=== PATIENT | male | born 1950 | race Caucasian/White ===

== ENCOUNTER 2016-10-03 08:47 | Day surgery (SDC) | payer MEDICARE, BC ==
[~2016-10-03 08:47] MED LIST: Buffered Lidocaine 1% SYR 3ML* 3 ML/SYR SYRINGE INTRADERM ONE
[2016-10-03] MEDS ORDERED: fentaNYL* 50 MCG/ML 2 ML VIAL (100 MCG VIAL) ONE (09:43)
[2016-10-03] MEDS ORDERED: Midazolam* 1 MG/ML 2 ML VIAL (2 MG) ONE (09:43)
[2016-10-03] MEDS ORDERED: Tropicamide 1% OPTH.SOL* BTL ONE (10:11)
[2016-10-03] MEDS ORDERED: Flurbiprofen 0.03% OPTH.SOL* 2.5 ML BTL ONE (10:11)
[2016-10-03] MEDS ORDERED: Tetracaine 0.5% OPTH.SOL 4 ML* 1 DROP BTL ONE (10:11)
[2016-10-03] MEDS ORDERED: Phenylephrine 2.5% OPTH.SOL* 2 ML BTL ONE (10:11)
[2016-10-03] MEDS ORDERED: Cyclopentolate 1% OPTH.SOL* 2 ML BTL ONE (10:11)
[2016-10-03] MEDS ORDERED: Neomycin/Polymy/Dex OPHTH.OIN* 3.5 GM ONE (10:11)
[2016-10-03] MEDS ORDERED: Lidocaine 1% MPF* 2 ML VIAL ONE (10:11)
[2016-10-03 10:44] VITALS: BP 120/65
--- NOTE | 2016-10-04 01:18 | OP ---
DATE OF OPERATION: 10/03/16 [facility] DATE OF : 48 SURGEON: Dr. Tk Ferrer. MILIEU COORDINATOR: None. ANESTHESIOLOGIST: Luis Thurman DO ANESTHESIA: Topical with intravenous sedation. PRE-OP DIAGNOSIS: Cataract, right eye. POST-OP DIAGNOSIS: Cataract, right eye. OPERATIVE PROCEDURE: Phacoemulsification and cataract extraction with posterior chamber intraocular lens implant, right eye. COMPLICATIONS: None. BLOOD LOSS: None. DESCRIPTION OF PROCEDURE: The patient was brought to the operating room and received a small amount of intra-venous sedation. A drop of Tetracaine was placed in his right eye. He was prepped and draped in the usual sterile fashion for ophthalmic surgery and attention was directed to the right eye where a speculum was placed. A paracentesis was created at the 11 o'clock position and 0.1 cc of 1 percent preservative-free Lidocaine was injected into the anterior chamber followed by DisCoVisc. The eye was digitally stabilized while a 2.75 mm keratome was used to create a triplanar clear corneal incision at the 9 o'clock position. A continuous curvilinear capsulorrhexis was created with a cystotome and Utrata forceps. BSS on a cannula was used to hydrodissect the lens from the capsule. Phacoemulsification was performed in a divide-and- conquer technique to create four fragments which were removed. Residual cortical material was removed with irrigation and aspiration. DisCoVisc was used to inflate the capsular bag and an SN60AT 21.0 diopter lens was folded and inserted into the capsular bag. DisCoVisc was removed using irrigation and aspiration. BSS on a cannula was used to hydrate the corneal stroma and seal the wound. At the end of the case the pupil was round and the lens was centered. The eye was of normal pressure and the wound was water tight. The speculum was removed and topical Maxitrol ointment was placed on the surface of the eye. The eye was closed, patched and shielded and the patient was sent to the recovery room in stable condition with post operative instructions and follow-up appointment given. [id number]/[facility] #: [id number] MTDD
== END 2016-10-03 10:34 | disposition home or self-care (01) ==
LOC: OREAST 08:47
PROVIDERS: ATTEND Ophthalmology
DX: H25.11 Age-related nuclear cataract, right eye (principal); Z87.891 Personal history of nicotine dependence; E78.5 Hyperlipidemia, unspecified
CPT/HCPCS: A9270-GY; J2250; J3010; V2632

== ENCOUNTER 2019-05-13 12:49 | Emergency (ER) | payer MEDICARE, BC ==
--- OUTSIDE RECORDS SUMMARY | 2019-05-13 12:55 | XMS REPORT | Continuity of Care Document ---
:1950 External Reference #:[id number] Author Name José Miguel Bansal, OD Address [address] [place] [address] Care Team Providers Name Role Phone Tim Jamison MD - Camp Counselor Care Team Information Sales Representative Groceries Problems Active Problems Provider Date Retinal defect José Miguel Kwan O.D. Onset: 10/22/2014 Lens Replaced By Other Means José Miguel Kwan O.D. Onset: 10/22/2014 Vitreous degeneration José Miguel Kwan O.D. Onset: 10/22/2014 Nuclear senile cataract José Miguel Kwan O.D. Onset: 10/22/2014 Status Post Surgery José Miguel Kwan O.D. 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 Onset: 10/21/2013 After-cataract with vision obscured Tk Ferrer M.D. Onset: 10/21/2013 Social History Type Date Description Comments Sex Unknown ETOH Use Rarely consumes alcohol Tobacco Use Start: Unknown Patient has never smoked Smoking Status Reviewed: 04/08/19 Patient has never smoked Allergies, Adverse Reactions, Alerts Description No Known Drug Allergies Medications Active Medications SIG Qnty Indications Ordering Provider Date Brimonidine Tartrate instill 1 drop 15units José Miguel Bansal, OD 01/07/2019 three times per 0.15% Solution day right eye only Refresh Optive 1 drops both 2ml Tk Ferrer, 10/21/2013 0.5-0.9% eyes twice a day M.DLuzma Solution History Medications Alphagan P 1 drop twice a 10ml José Miguel Bansal, OD 11/26/2018 - 0.1% day right eye 01/07/2019 Solution Immunizations Description No Information Available Vital Signs Date Vital Result Comment 04/04/2019 3:34pm Intraocular Pressure Right Eye 14 mmHg 330pm Intraocular Pressure Left Eye 20 mmHg 04/04/2019 3:34pm Intraocular Pressure Right Eye 34 mmHg after 1 drop lumigan and combigan ~930am Results Description No Information Available Procedures Date Code Description Status 04/04/2019 65389 Gonioscopy Completed 04/04/2019 86273 Eye Exam Est Intermediate Completed 03/12/2019 39611 Visual Field Exam Extended, Unilateral Or Bilateral Completed 11/26/2018 25346 Oct Retina Completed 11/26/2018 76775 Eye Exam Est Intermediate Completed Medical Devices Description No Information Available Encounters Type Date Location Provider Dx Diagnosis Office Visit 03/12/2019 Main Office José Miguel Bansal, OD 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, right eye Office Visit 01/07/2019 Main Office José Miguel Bansal, OD H40.051 Ocular 9:45a hypertension, right eye Assessments Date Code Description Provider 04/08/2019 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, right eye José Miguel Bansal, OD 04/04/2019 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, right eye José Miguel Bansal, OD 04/04/2019 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, right eye José Miguel Bansal, OD 04/04/2019 H43.811 Vitreous degeneration, right eye José Miguel Bansal, OD 04/04/2019 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, bilateral José Miguel Bansal, OD 04/04/2019 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, bilateral José Miguel Bansal, OD 04/04/2019 H43.811 Vitreous degeneration, right eye José Miguel Bansal, OD 03/12/2019 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, right eye José Miguel Bansal, OD 01/07/2019 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, right eye José Miguel Bansal, OD 11/26/2018 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
--- OUTSIDE RECORDS SUMMARY | 2019-05-13 12:55 | XMS REPORT | Continuity of Care Document ---
:1950 External Reference #:[id number] Author Name José Miguel Bansal, OD (transmitted by agent of provider Ulises Coelho) Address [address] [place] [address] Care Team Providers Name Role Phone Tim Jamison MD - Computer Technical Support Specialist Care Team Information Lathe Tender Problems Active Problems Provider Date Retinal defect [...] Patient has never smoked Smoking Status Reviewed: 04/15/19 Patient has never smoked Allergies, Adverse Reactions, Alerts Description No Known Drug Allergies Medications Active Medications SIG Qnty Indications Ordering Provider Date Latanoprost 1 drop nightly 2.500ml José Miguel Bansal, SALOMÓN 04/15/2019 0.005% right eye Solution Combigan one drop twice a 15ml José Miguel Bansal, SALOMÓN 04/15/2019 0.2-0.5% day right eye Solution Refresh Optive 1 drops both 2ml Tk Ferrer, 10/21/2013 0.5-0.9% eyes twice a day M.DLuzma Solution History Medications Brimonidine Tartrate instill 1 drop 15units José Miguel Bansal OD 01/07/2019 - three times per 04/15/2019 0.15% Solution day right eye only Alphagan P 1 drop twice a 10ml José Miguel Bansal, OD 11/26/2018 - 0.1% day right eye 01/07/2019 Solution Immunizations Description No Information Available Vital Signs Date Vital Result Comment 04/08/2019 3:26pm Intraocular Pressure Right Eye 12 mmHg Intraocular Pressure Left Eye 18 mmHg 04/04/2019 3:34pm Intraocular Pressure Right Eye 14 mmHg 330pm Intraocular Pressure Left Eye 20 mmHg Results Description No Information Available Procedures Date Code Description Status 04/04/2019 21317 Gonioscopy Completed 04/04/2019 37555 Eye Exam Est Intermediate Completed 03/12/2019 16412 Visual Field Exam Extended, Unilateral Or Bilateral Completed 11/26/2018 29534 Oct Retina Completed 11/26/2018 04464 Eye Exam Est Intermediate Completed Medical Devices Description No Information Available Encounters Type Date Location Provider Dx Diagnosis Office Visit 04/08/2019 Main Office José Miguel Bansal, OD H40.051 Ocular 3:00p hypertension, right eye Office Visit 03/12/2019 Main Office José Miguel Bansal, OD 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
--- OUTSIDE RECORDS SUMMARY | 2019-05-13 12:55 | XMS REPORT | Continuity of Care Document ---
:1950 External Reference #:[id number] Author Name José Miguel Bansal, OD Address [address] [place] [address] Care Team Providers Name Role Phone Tim Jamison MD - Lead C Developer Care Team Information Improvement Spec [phone] Problems Active Problems Provider Date Retinal defect José Miguel Kwan O.D. Onset: 10/22/2014 Lens Replaced By Other Means José Miguel Kwan O.D. Onset: 10/22/2014 Vitreous degeneration José Miguel Kwan O.D. Onset: 10/22/2014 Nuclear senile cataract José Miguel Kwan O.D. Onset: 10/22/2014 Status Post Surgery José Miguel Kwan O.D. 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 Onset: 10/21/2013 After-cataract with vision obscured kT Ferrer M.D. Onset: 10/21/2013 Social History Type Date Description Comments Sex Unknown ETOH Use Rarely consumes alcohol Tobacco Use Start: Unknown Patient has never smoked Smoking Status Reviewed: 05/05/19 Patient has never smoked Allergies, Adverse Reactions, Alerts Description No Known Drug Allergies Medications Active Medications SIG Qnty Indications Ordering Provider Date Latanoprost 1 drop nightly 2.500ml José Miguel Bansal, OD 04/15/2019 0.005% right eye Solution Combigan one drop twice a 15ml José Miguel Bansal, OD 04/15/2019 0.2-0.5% day right eye Solution Refresh Optive 1 drops both 2ml Tk Ferrer, 10/21/2013 0.5-0.9% eyes twice a day M.D. Solution History Medications Brimonidine Tartrate instill 1 drop 15units José Miguel Bansal, OD 01/07/2019 - three times per 04/15/2019 0.15% Solution day right eye only Alphagan P 1 drop twice a 10ml José Miguel Bansal, OD 11/26/2018 - 0.1% day right eye 01/07/2019 Solution Immunizations Description No Information Available Vital Signs Date Vital Result Comment 04/15/2019 12:36pm Intraocular Pressure Right Eye 19 mmHg Intraocular Pressure Left Eye 19 mmHg 04/08/2019 3:26pm Intraocular Pressure Right Eye 12 mmHg Intraocular Pressure Left Eye 18 mmHg Results Description No Information Available Procedures Date Code Description Status 04/04/2019 57405 Gonioscopy Completed 04/04/2019 41298 Eye Exam Est Intermediate Completed 03/12/2019 19325 Visual Field Exam Extended, Unilateral Or Bilateral Completed 11/26/2018 79780 Oct Retina Completed 11/26/201833338 Eye Exam Est Intermediate Completed Medical Devices Description No Information Available Encounters Type Date Location Provider Dx Diagnosis Office Visit 04/15/2019 Main Office José Miguel Bansal, OD H40.051 Ocular 11:30a hypertension, right eye Office Visit 04/08/2019 Main Office Jos éMiguel Bansal, OD H40.051 Ocular 3:00p hypertension, right eye Office Visit 03/12/2019 Main Office José Miguel Bansal, OD 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, right eye Office Visit 01/07/2019 Main Office José Miguel Bansal, OD H40.051 Ocular 9:45a hypertension, right eye Assessments Date Code Description Provider 05/06/2019 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
--- OUTSIDE RECORDS SUMMARY | 2019-05-13 12:55 | XMS REPORT | Continuity of Care Document ---
:1950 External Reference #:[id number] Author Name José Miguel Bansal, OD Address [address] [place] [address] Care Team Providers Name Role Phone Tim Jamison MD - Deputy Fire Marshal Care Team Information Laborer General Problems Active Problems Provider Date Retinal defect [...] Patient has never smoked Smoking Status Reviewed: 04/04/19 Patient has never smoked Allergies, Adverse Reactions, [...] Vital Signs Date Vital Result Comment 04/04/2019 9:15am Intraocular Pressure Right Eye 44 mmHg Cornea Thickness Left Eye 577 m Cornea Thickness Right Eye 522 m Pachymetry adjusted IOP Right Eye -2 Pachymetry adjusted IOP Left Eye +1 03/12/2019 4:06pm Intraocular Pressure Right Eye 23 mmHg Intraocular Pressure Left Eye 18 mmHg Results Description No Information Available Procedures Date Code Description Status 03/12/2019 07784 Visual Field Exam Extended, Unilateral Or Bilateral Completed 11/26/2018 00053 Oct Retina Completed 11/26/2018 71986 Eye Exam Est Intermediate Completed Medical Devices Description No Information Available Encounters Type Date Location Provider Dx Diagnosis Office Visit 03/12/2019 Main Office José Miguel Bansal, OD 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
--- NOTE | 2019-05-13 13:27 | UC ---
Complaint Male HPI - HPI Summary HPI Summary: 69-year-old male with mild burning on urination yesterday and his urine was dark in color. He states that has improved today. He had sudden onset of left- sided flank pain yesterday which continues today. He has mild nausea but no vomiting. He refuses Toradol injection at this point in time. He refuses anti- nausea medication at this point in time. - History of Current Complaint Chief Complaint: UCBackPain Stated Complaint: SIDE PAIN Time Seen by Provider: 05/13/19 13:11 Hx Obtained From: Patient Onset/Duration: Sudden Onset, Other - Started yesterday. Timing: Constant Severity Initially: Mild Severity Currently: Moderate Pain Intensity: 9 Location: Flank - Left flank. Radiates to: radiates around to back. Character: Sharp, Burning Aggravating Factor(s): Nothing Alleviating Factor(s): Nothing Associated Signs And Symptoms: Positive: Hematuria - Patient states his urine was dark yesterday and today but it has improved today., Nausea - Allergies/Home Medications Allergies/Adverse Reactions: Allergies Allergy/AdvReac Type Severity Reaction Status Date / Time No Known Allergies Allergy Verified 05/13/19 12:56 Home Medications: Home Medications Eye Drops For Pressure 1 drop RIGHT EYE DAILY 05/13/19 [History Confirmed ] Eye Drops Pressure 1 drop RIGHT EYE BID 05/13/19 [History Confirmed 05/13/19] PMH/Surg Hx/FS Hx/Imm Hx Previously Healthy: Yes - Surgical History Surgical History: Yes Surgery Procedure, Year, and Place: 1950 TONSILLECTOMY gb removed approx 2 yrs ago [facility]. 1959 HERNIA REPAIR LEFT GROIN. 2009 HERNIA REPAIR RIGHT GROIN. 1995 RIGHT KNEE TORN MENISCUS. 1989 ELBOW BONE SPUR REPAIR. 2007 DETACHED RETINA LEFT EYE. 2009 CATARAC SURGERY LEFT. 2005 VARICOSE VEIN STRIPPING. LAP LEROY 2014 - Family History Known Family History: Positive: Non-Contributory - Social History Lives: With Family Alcohol Use: Rare Substance Use Type: None Smoking Status (MU): Former Smoker Type: Cigarettes Length of Time of Smoking/Using Tobacco: 10 YRS Have You Smoked in the Last Year: No When Did the Patient Quit Smoking/Using Tobacco: 1978 Review of Systems All Other Systems Reviewed And Are Negative: Yes Genitourinary: Positive: Dysuria, Other - No history of kidney stones. Patient states urine was dark in color yesterday but improved. Is Patient Immunocompromised?: No Physical Exam Triage Information Reviewed: Yes Appearance: Well-Nourished, Ill-Appearing - Pale in appearance, Pain Distress - Patient appears mildly uncomfortable and pale however he prefers not to have any pain medicine at this point in time nor any anti-nausea medicine. Vital Signs: Initial Vital Signs Temp 97 F 05/13/19 12:51 Pulse 60 05/13/19 12:51 Resp 18 05/13/19 12:51 BP 147/79 05/13/19 12:51 Pulse Ox 98 05/13/19 12:51 Vital Signs Reviewed: Yes Respiratory: Positive: Lungs clear, Normal breath sounds, No respiratory distress, No accessory muscle use Cardiovascular: Positive: RRR, No Murmur, Pulses Normal, Brisk Capillary Refill Abdomen Description: Positive: Nontender, No Organomegaly, Soft. Negative: CVA Tenderness (R), CVA Tenderness (L) Bowel Sounds: Positive: Present Re-Evaluation - Re-Evaluation First Eval Re-Evaluation Time: 14:00 Change: Worse - Patient requested antinausea medicine, Zofran 4 mg sublingual ordered. He also agreed to Toradol injection 30 mg. Second Eval Change: Worse - Pt dry-heaving. We will give normal saline 1000 ML IV wide open , Toradol 30 mg IV instead of IM and will continue with the Zofran sublingual. Third Eval Change: Improved - Vital signs stable. Patient is pain free and nausea free. Complaint Male Course/Dx - Course Course Of Treatment: CT abdomen/pelvis without contrast:CT of the abdomen and pelvis was performed without oral or IV contrast. Coronal and sagittal reconstructed images were obtained. Lung bases demonstrate bibasilar atelectasis. The heart demonstrates no pericardial effusion. The liver is normal in size. No focal lesions or intrahepatic ductal dilatation is noted. The patient is status post cholecystectomy. Common duct is not dilated. Pancreas demonstrates no mass or pancreatic ductal dilatation. The spleen is normal size. No adrenal lesions are noted. The kidneys demonstrate no hydronephrosis. There is a calculus in the proximal left ureter. This is at the level of L4-L5. Calculus measures approximately 0.5 cm with mild left hydronephrosis. Right kidney is unremarkable. Multiple parapelvic cysts are noted bilaterally. Aorta demonstrates no abnormal aneurysmal dilatation. Atherosclerotic aorta is noted. No dilated small bowel are noted. The prostate is enlarged. Diverticulosis without definite evidence of diverticulitis. No hernias are noted. Bony structures are grossly unremarkable. IMPRESSION: Left hydronephrosis with a calculi measuring 0.5 cm at the L4-L5 level in the left ureter. Bilateral parapelvic cysts are noted. Patient is status post cholecystectomy At approximately 1445 patient was feeling much better with no further nausea or pain. Discharged instructions were given to him and his . He is to follow- up with his urologist later in the week over the next 2 or 3 days. He's to strain all urine. - Differential Dx/Diagnosis Provider Diagnosis: Kidney stone on left side Discharge ED - Sign-Out/Discharge Documenting (check all that apply): Patient Departure All imaging exams completed and their final reports reviewed: Yes - Discharge Plan Condition: Good Disposition: HOME Prescriptions: Ibuprofen TAB* [Motrin TAB* 600 MG] 600 mg PO Q8H PRN #21 tab PRN Reason: Pain - Mild Ondansetron ODT TAB* [Zofran 4 MG Odt TAB*] 4 mg PO Q8H PRN #15 tab.odt PRN Reason: Nausea Oxycodone HCl/Acetaminophen [Percocet 5-325 mg Tablet] 1 each PO Q4HR PRN #10 tablet MDD 8 PRN Reason: Pain - Moderate Tamsulosin CAP* [Flomax CAP*] 0.4 mg PO DAILY 7 Days #7 cap Patient Education Materials: Kidney Stones (ED) Referrals: Tim Jamison MD [Primary Care Provider] - Ulises Prabhakar MD [Medical Doctor] - Additional Instructions: Increase fluids, rest, take the Motrin with food every 8 hours as needed for mild pain, take the Percocet one or 2 tablets every 4-6 hours for more severe pain. Take the Flomax daily. Take the Zofran as needed under your tongue every 8 hours for nausea. Go to the emergency room for further treatment if you develop severe pain which you cannot control. Called the urologist today and make an appointment for later this week. Strain all urine. Go to the emergency room if you develop any fever or chills. - Billing Disposition and Condition Condition: GOOD Disposition: Home
[2019-05-13] MEDS ORDERED: Ketorolac INJ* 30 MG/ML 1 ML VIAL IM ONE (13:57)
[2019-05-13] MEDS ORDERED: Ondansetron ODT TAB* 4 MG SL ONE (13:57)
[2019-05-13] MEDS ORDERED: Ketorolac INJ* 30 MG/ML 1 ML VIAL IV PUSH ONE (14:11)
[2019-05-13] MEDS ORDERED: NS 0.9% 1000 ML** 1,000 ML IV ONE (14:15)
[2019-05-13 14:25] VITALS: BP 163/82
== END 2019-05-13 15:00 | disposition home or self-care (01) ==
LOC: UCEAST 12:49
DX: N13.2 Hydronephrosis with renal and ureteral calculous obstruction (principal); R19.09 Other intra-abdominal and pelvic swelling, mass and lump; Z90.49 Acquired absence of other specified parts of digestive tract; Z87.891 Personal history of nicotine dependence
CPT/HCPCS: 74176; 81003; 87086; 96360; 96374; 99212; A9270-GY; G0463; J1885

== ENCOUNTER 2019-05-23 07:29 | Day surgery (SDC) | payer MEDICARE, BC ==
--- NOTE | 2019-05-22 14:52 | HP ---
CC: Dr. Jamison * ADMITTING HISTORY AND PHYSICAL: DATE OF ADMISSION: 05/23/19 ADMITTING DIAGNOSES: 1. Calculus, left ureter. 2. Left hydronephrosis. PLANNED PROCEDURE: Left ureteroscopy, possible laser and stent insertion. SURGEON: Dr. Prabhakar. HISTORY OF PRESENT ILLNESS: Brat Mariscal is a 69-year-old gentleman who has had episodic left flank pain and nausea for the almost 2 weeks secondary to a calculus which initially was a 5 mm calculus located in the proximal left ureter at the time of his initial CT. He has been managed conservatively and continues to have fairly severe episodes of flank pain and would like to have treatment for the stone and is now being brought in for left ureteroscopy. PAST MEDICAL HISTORY: Significant for ocular hypertension. PAST SURGICAL HISTORY: Significant for bilateral inguinal hernia repair, cholecystectomy, knee surgery, and surgery for retinal detachment. MEDICATIONS ON ADMISSION: 1. Eye drops. 2. Colace p.r.n. 3. Ibuprofen 2 to 3 times a day. 4. Flomax 0.4 mg daily. 5. Oxycodone p.r.n. ALLERGIES: No known drug allergies. FAMILY HISTORY: Negative for stones. SOCIAL HISTORY: Smoking history: He is a former smoker who quit 40 years ago with a 15-pack year smoking history. REVIEW OF SYSTEMS: He is otherwise in excellent health. There is no history of diabetes mellitus or any other major systemic illness. He denies any chest pain or shortness of breath. PHYSICAL EXAMINATION GENERAL: Reveals a pleasant healthy appearing gentleman. VITAL SIGNS: Blood pressure is 120/62, pulse 78 per minute and regular, temperature 97.6, oxygen saturation 96% on room air. LUNGS: Clear bilaterally. CARDIOVASCULAR EXAM: Regular rate and rhythm. S1, S2. ABDOMEN: Soft with left flank tenderness. IMPRESSION: A 69-year-old gentleman with intermittent left flank pain and nausea secondary to approximately 5 mm calculus in the left ureter. Planned procedure is left ureteroscopy, possible laser and stent insertion. [id number]/[facility] #: [id number] MTDD
[~2019-05-23 07:29] MED LIST changes: -Buffered Lidocaine 1% SYR 3ML* 3 ML/SYR SYRINGE INTRADERM ONE; +Buffered Lidocaine 1% SYRIN* 1 ML/SYRINGE INTRADERM ONE; +Lactated Ringers 1000 ML Bag* 1,000 ML IV SCH; +Sodium Citrate/Citric Acid* 15 ML UDC PO ONE
[2019-05-23] MEDS ORDERED: Sodium Citrate/Citric Acid* 15 ML UDC ONE (09:12)
[2019-05-23] MEDS ORDERED: cefTRIAXone(*) 2 GM ADDV.VIAL IVPB ONE (09:13)
[2019-05-23] MEDS ORDERED: Iohexol 180 (CONTRAST) 10 ML SDV IV ONE (10:04)
[2019-05-23] MEDS ORDERED: Naloxone* 0.4 MG/ML 1 ML VIAL IV PRN (10:15)
[2019-05-23] MEDS ORDERED: fentaNYL* 50 MCG/ML 2 ML VIAL (100 MCG VIAL) IV PRN (10:15)
[2019-05-23] MEDS ORDERED: Ondansetron INJ* 2 MG/ML VIAL IV PRN (10:15)
[2019-05-23] MEDS ORDERED: Lidocaine 2% PF * 5 ML VIAL ONE (10:31)
[2019-05-23] MEDS ORDERED: Propofol* 10 MG/ML 20 ML BTL ONE (10:31)
[2019-05-23] MEDS ORDERED: fentaNYL* 50 MCG/ML 2 ML VIAL (100 MCG VIAL) ONE (10:33)
[2019-05-23] MEDS ORDERED: Furosemide IV* 10 MG/ML 2 ML VIAL (20 MG) ONE (10:54)
[2019-05-23] MEDS ORDERED: Acetaminophen TAB* 325 MG ONE (11:48)
[2019-05-23 12:39] VITALS: BP 128/85
--- NOTE | 2019-05-24 01:00 | OP ---
CC: Dr. Tim Jamison * DATE OF OPERATION: 05/23/19 - [facility] DATE OF : 48 SURGEON: Ulises Prabhakar MD. ANESTHESIOLOGIST: Dr. Thurman. ANESTHESIA: General. PRE-OP DIAGNOSIS: Left hydronephrosis. POST-OP DIAGNOSIS: Left hydronephrosis. OPERATIVE PROCEDURES: Cystoscopy, left retrograde pyelogram, left ureteroscopy , and left pyeloscopy. COMPLICATIONS: None. POSTOPERATIVE CONDITION: Stable. OPERATIVE FINDINGS: 1. Moderately large prostate (predominantly median lobe). 2. Mild left hydronephrosis with no calculous seen in the left ureter or left renal pelvis. INDICATIONS: Bart Mariscal is a 69-year-old gentleman who has had intermittent left flank pain secondary to a calculus in the left ureter. DESCRIPTION OF PROCEDURE: After induction of general anesthesia, the patient was placed in the dorsal lithotomy position. Sequential compression devices were in place and functioning. Initial cystoscopy revealed a normal-appearing urethra. The prostate is moderately large, especially the median lobe. The bladder was examined and appears unremarkable. There was mild edema noted in the area of the left orifice. Left retrograde pyelogram revealed mild fullness of the left collecting system. A 6-Japanese semi-rigid ureteroscope was introduced and advanced under direct vision into the left ureter. Other than the mild edema noted in the area of the left orifice, the ureter itself was unremarkable. There was no calculus noted in the distal, mid or proximal left ureter. The ureteroscope was carefully advanced into the left renal pelvis and pyeloscopy was performed. I was able to visualize the entire renal pelvis and most of the upper and mid pole calyces. I did not visualize any calculus. The ureteroscope was carefully withdrawn under direct vision and I suspect that the calculus has passed just leaving some residual edema, which does not require any stent insertion. The bladder was emptied. The patient tolerated the procedure satisfactorily and was transferred back to the recovery area in stable condition. [id number] #: [id number] MTDD
== END 2019-05-23 12:41 | disposition home or self-care (01) ==
LOC: OR 07:29
PROVIDERS: ATTEND Urology
DX: N13.30 Unspecified hydronephrosis (principal); N40.0 Benign prostatic hyperplasia without lower urinary tract symptoms; H40.059 Ocular hypertension, unspecified eye; Z87.891 Personal history of nicotine dependence
CPT/HCPCS: 74420; A9270-GY; J0696; J1940; J2704; J3010

== ENCOUNTER 2020-08-06 13:27 | Observation (INO) ==
[2020-08-06] MEDS ORDERED: NS 0.9% 1000 ml BAG 1,000 ML IV ONE (13:39)
[2020-08-06] MEDS ORDERED: Iodixanol (CONTRAST) 320 MG/ML 100 ML SDV IV ONE (13:49)
[2020-08-06 13:57] LABS: ABS Basophils 0.1 10^3/ul (0-0.2); ABS Eosinophils 0.1 10^3/ul (0-0.6); ABS Lymphocytes 1.3 10^3/ul (1.0-4.8); ABS Monocytes 0.4 10^3/ul (0-0.8); ABS Neutrophils 6.2 10^3/ul (1.5-7.7); Hematocrit 46 % (42-52); Hemoglobin 15.1 g/dL (14.0-18.0); Lymphocyte % 15.8 %; Mean Corpuscular HGB Conc 33 g/dL (31-36); Mean Corpuscular Hemoglobin 29 pg (27-31); Mean Corpuscular Volume 90 fL (80-94); Mean Platelet Volume 7.6 fL (7.4-10.4); Platelet Count 127 10^3/uL (150-450); Red Blood Count 5.15 10^6 /uL (4.18-5.48); Red Cell Distribution Width 16 % (10-15)
[2020-08-06 14:14] LABS: Activated Partial Thrombo Time 30.1 seconds (26.0-38.0); INR 0.98 (0.82-1.09)
[2020-08-06 14:16] LABS: Albumin 4.3 g/dL (3.2-5.2); BUN/Creatinine Ratio 14.5 (8-20); EGFR African American 79.8 (>60); Globulin 2.2 g/dL (2-4); Potassium 4.4 mmol/L (3.5-5.0); Total Bilirubin 0.6 mg/dL (0.2-1.0); Total Protein 6.5 g/dL (6.4-8.9)
[2020-08-06 15:07] LABS: Urine Appearance Clear; Urine Bilirubin Negative (Negative); Urine Blood Negative (Negative); Urine Color Yellow; Urine Glucose Negative (Negative); Urine Ketones Negative (Negative); Urine Nitrite Negative (Negative); Urine Protein Negative (Negative); Urine Specific Gravity 1.043 (1.010-1.030); Urine Urobilinogen Negative (Negative)
[2020-08-06] MEDS ORDERED: Magnesium Hydroxide LIQ 30 ML UDC PO PRN (16:37)
[2020-08-06] MEDS ORDERED: hydrALAZINE 20 mg/ml 1 ML Vial IV IV SLOW PU PRN (16:54)
[2020-08-06] MEDS ORDERED: Latanoprost 0.005% 2.5 ml BTL RIGHT EYE SCH (21:00)
[2020-08-06] MEDS ORDERED: Enoxaparin 40 MG/0.4 ML SYR SUBCUT SCH (21:00)
[2020-08-06] MEDS: PTO:Brimonidine/Timolol 0.2%/0.5% OPTH(NF) SOL 5 ML RIGHT EYE SCH (21:49)
[2020-08-07] MEDS ORDERED: Vitamin THERAPEUTIC TAB PO SCH (09:00)
[2020-08-07] MEDS: PTO:Brimonidine/Timolol 0.2%/0.5% OPTH(NF) SOL 5 ML RIGHT EYE SCH ×2 (10:08→14:11)
[2020-08-07 17:01] VITALS: BP 113/67
== END 2020-08-07 17:30 | disposition home or self-care (01) ==
LOC: ED 13:27 → MEDTELE 13:27
PROVIDERS: ADMIT Pediatrics; ATTEND Pediatrics